=== PATIENT | female | born 1940 | race African-American/Black ===

== ENCOUNTER 2025-05-19 03:43 | Emergency (ER) | payer MEDICARE ==
[2025-05-19] MEDS ORDERED: KETAMINE 100 MG/ML (5ML VIAL) ONE (04:07)
[2025-05-19] MEDS ORDERED: Rocuronium Bromide 10 MG/ML (10ML VIAL) ONE (04:08)
[2025-05-19 04:21] LABS: #Basophils 0.07 10x3/uL (0.0-0.2); #Eosinophils 0.47 10x3/uL (0.0-0.7); #Monocytes 0.44 10x3/uL (0.11-0.59); #Neutrophils 8.37 10x3/uL (1.40-6.50); %Basophils 0.7 % (0.0-1.0); %Eosinophils 4.4 % (0.0-10.0); %Lymphocytes 12.0 % (21.0-51.0); %Monocytes 4.1 % (0.0-10.0); %Neutrophils 78.4 % (42.0-75.0); Hematocrit 28.6 % (36.0-47.0); Hemoglobin 8.9 g/dL (12.0-16.0); Mean Corpuscular Hemoglobin 26.1 pg (27.0-31.0); Mean Corpuscular Volume 83.9 fL (78.0-98.0); Platelet Count 216 10x3/uL (130-400); Red Blood Cell (RBC) Count 3.41 mill/uL (4.20-5.40); White Blood Cell (WBC) Count 10.67 10x3/uL (4.8-10.8)
[2025-05-19 04:37] LABS: ALT (SGPT) Less than 7 U/L (Less than 34); AST (SGOT) 7 U/L (11-34); Albumin 2.5 g/dL (3.1-4.5); Alkaline Phosphatase 49 U/L (40-110); Anion Gap 21 mmol/L (10-20); BUN (Urea Nitrogen) 10 mg/dL (9.8-20.1); Bilirubin, Total 0.3 mg/dL (0.3-1.2); Calc. Creatinine Clearance 0 mL/min (70-130); Calcium 8.5 mg/dL (7.8-10.44); Carbon Dioxide 13 mmol/L (23-31); Chloride 108 mmol/L (98-107); Globulin 2.6 g/dL (2.4-3.5); Glucose 158 mg/dL (83-110); Potassium 3.0 mmol/L (3.5-5.1); Sodium 139 mmol/L (136-145)
[2025-05-19 04:50] LABS: Bacteria/HPF None Seen HPF (None Seen); CAUTI Indications for Culture Alt mental st,lethar; Glucose, Urine (Dipstick) Normal (Negative); Leukocyte Negative Leu/uL (Negative); Protein, Urine (Dipstick) Negative (Neg-Trace); RBC/HPF 0-3 HPF (0-3); Specific Gravity, Urine 1.023 (1.002-1.036); WBC/HPF 0-3 HPF (0-3)
[2025-05-19 04:51] LABS: Urine Culture Reflex No No
[2025-05-19 05:03] LABS: INR-International Normal Ratio 1.2; PTT 23.8 sec (22.9-36.1); Prothrombin Time 14.8 sec (12.0-14.7)
[2025-05-19 05:12] LABS: Actual Bicarbonate (HCO3a) 17.4 mEq/L (22-28); Analyzer IN Cardio ER; Base Excess (BEa) -2.8 mEq/L (-2.0 to +3.0); Calcium, Ionized (arterial) 1.13 mmol/L (1.12-1.30); Hematocrit-ABG 32 % (36.0-47.0); Hemoglobin (Hb) 10.8 g/dL (12.0-16.0); O2 Tension (PaO2), arterial 427.5 mmHg (> 60.0); Potassium - ABG Lab 2.73 mmol/L (3.70-5.30); pH, Arterial 7.575 (7.35-7.45)
[2025-05-19 05:13] LABS: CO2 Tension 19.2 mmHg (35.0-45.0)
[2025-05-19] MEDS ORDERED: levETIRAcetam 500 MG (5 mL) VIAL ONE (05:30)
[2025-05-19] MEDS ORDERED: NS 0.9% w/ 20 MEQ KCL 1,000 ML ONE (06:20)
[2025-05-19] MEDS ORDERED: Iopamidol-370 76% 500 ML MDV (1 ML CHARGE) ONE (14:27)
== END 2025-05-19 06:27 | disposition short-term general hospital (02) ==
LOC: ERS 03:43
DX: R41.82 Altered mental status, unspecified (principal); R56.9 Unspecified convulsions; I10 Essential (primary) hypertension; E11.9 Type 2 diabetes mellitus without complications; Z86.73 Personal history of transient ischemic attack (TIA), and cerebral infarction without residual deficits; Z79.899 Other long term (current) drug therapy
CPT/HCPCS: 31500; 51702; 70450; 70496; 70498; 71045; 80053; 81001; 82550; 82805; 84146; 84484; 85025; 85610; 85730; 93005; 94002; 94760; 95813; 96365; 96366; 96368; 96375; 99292; J1953; J2060; J2704; J3480; Q9967